=== PATIENT | female | born 1990 | race Caucasian/White ===

== ENCOUNTER 2018-11-29 20:41 | Emergency (ER) | payer OTHER ==
[~2018-11-29] VITALS: Ht 170.2 cm; Wt 63.5 kg
[2018-11-29 20:52] VITALS: Ht 170.2 cm; Wt 63.5 kg
[2018-11-29 21:36] VITALS: BP 120/80
[2018-11-29 21:42] LABS: microscopic required? YES; urine erythrocyte 3+ (NEGATIVE)
== END 2018-11-29 21:36 | disposition home or self-care (01) ==
LOC: ED 20:41
PROVIDERS: Emergency Medicine
DX: N39.0 Urinary tract infection, site not specified (principal)
CPT/HCPCS: 87491; 87591